=== PATIENT | female | born 1990 | race Caucasian/White ===

== ENCOUNTER → 2020-01-08 | Outpatient (CLI) | payer BC, OTHER ==
--- NOTE | 2020-01-08 16:13 | REP ---
Clinical: Pain. Strain. Technique: AP, lateral, bilateral oblique and coned-down views of the lumbosacral spine. Findings: Alignment and lordosis maintained. No acute fracture / compression injury or subluxation. Mild degenerative changes at L4-5 and L5-S1 include endplate sclerosis with minimal disc space narrowing. No obvious spondylolysis. Impression: Mild degenerative spondylosis at L4-5 and L5-S1 Electronically Signed by Gabriel Flores MD 01/08/2020 04:04 P
== END ==
LOC: M WUC 15:41
PROVIDERS: ATTEND Physician Assistant
DX: S39.012A Strain of muscle, fascia and tendon of lower back, initial encounter (principal); M47.817 Spondylosis without myelopathy or radiculopathy, lumbosacral region; X58.XXXA Exposure to other specified factors, initial encounter; Y92.9 Unspecified place or not applicable

== ENCOUNTER → 2021-06-30 | Outpatient (REF) | payer OTHER | LOC: M WUC 19:43 | PROVIDERS: ATTEND Physician Assistant | DX: N39.0 Urinary tract infection, site not specified (principal) ==